=== PATIENT | female | born 1985 | race Two or more races ===

== ENCOUNTER 2024-03-10 16:48 | Emergency (ER) | payer OTHER ==
[~2024-03-10] VITALS: Ht 157.5 cm; Wt 62.6 kg
[2024-03-10] MEDS ORDERED: ONDANSETRON HCL 2 MG/ML VIAL IM ONE (18:00)
[2024-03-10] MEDS ORDERED: BUTALB/ACETAMINOPHEN/CAFFEINE 1 TAB TABLET PO ONE (18:00)
[2024-03-10 19:11] LABS: HEMATOCRIT 40.2 % (36.0-45.00); HEMOGLOBIN 13.5 g/dL (12.0-15.00); MEAN CELL VOLUME 79.4 fL (80.00-100.00); MEAN CORPUSCULAR HEMOGLOBIN 26.7 pg (27.00-32.0); MEAN CORPUSCULAR HGB CONC 33.7 g/dl (32.0-36.0); PLATELET COUNT 332 K/uL (150-450); RED BLOOD COUNT 5.06 M/uL (4.00-6.00)
[2024-03-10 19:45] LABS: ALKALINE PHOSPHATASE 77 U/L (50-136); ALT/SGPT 20 U/L (12-78); ANION GAP 8 (10.0-20.0); AST/SGOT 10 U/L (15-37); BILIRUBIN TOTAL 0.32 mg/dL (0.3-1.2); BLOOD UREA NITROGEN 9 mg/dL (7-18); BUN CREA RATIO 15 (7.0-25.0); CALCIUM 9.5 mg/dL (8.5-10.1); CARBON DIOXIDE 31 mEq/L (21-32); CHLORIDE 105 mmol/L (98-107); CREATININE SERUM 0.62 mg/dL (0.55-1.02); GFR 106.61; GLOBULINA 3.5 G/DL (2.4-3.5); GLUCOSE FASTING 92 mg/dL (65-100); OSMOLALITY SERUM 278 MOSM/KG (275-295); POTASSIUM 4.23 mEq/L (3.5-5.1); SODIUM 140 mmol/L (136-145); TOTAL PROTEIN 7.5 gm/dL (6.4-8.2)
[2024-03-10 20:11] LABS: HCG QUANTITATIVE < 1 mUI/mL (1-3)
[2024-03-10] MEDS ORDERED: BUTALB-ACETAMI1 EACH PO (22:31)
== END 2024-03-10 22:38 | disposition home or self-care (01) ==
LOC: ER 16:48
PROVIDERS: General Practice
DX: G43.909 Migraine, unspecified, not intractable, without status migrainosus (principal); R11.0 Nausea; Z20.822 Contact with and (suspected) exposure to COVID-19

== ENCOUNTER → 2024-07-21 | Emergency (ER) | payer OTHER ==
[~2024-07-21] VITALS: Ht 157.5 cm; Wt 63.5 kg
[~2024-07-21] MED LIST: BUTALB-ACETAMI1 EACH PO; CEFTRIAXONE SODIUM 1,000 MG VIAL IM ONE; CEFTRIAXONE SODIUM 1,000 MG VIAL ONE; CEPHALEXIN500 MG PO
== END | disposition home or self-care (01) ==
LOC: ER 20:26
DX: S90.222A Contusion of left lesser toe(s) with damage to nail, initial encounter (principal); X58.XXXA Exposure to other specified factors, initial encounter; Y93.89 Activity, other specified; Y92.832 Beach as the place of occurrence of the external cause; Y99.9 Unspecified external cause status